=== PATIENT | female | born 1995 | race Caucasian/White ===

== ENCOUNTER 2020-11-06 08:55 | Observation (INO) | payer BC, OTHER ==
[2020-11-06] MEDS ORDERED: Morphine 4 MG/ML VIAL ONE ×2 (09:54→12:02)
[2020-11-06] MEDS ORDERED: Dextrose 5% in Water 1,000 ML IV PRN (11:54)
[2020-11-06] MEDS ORDERED: Dextrose 50% Abboject 50 ML SYRINGE SLOW IVP PRN (11:54)
[2020-11-06] MEDS ORDERED: Ondansetron PF 4 MG/2 ML Vial IVP PRN (11:55)
[2020-11-06] MEDS ORDERED: Sodium Chloride 0.9% 1,000 ML IV SCH (12:00)
[2020-11-06] MEDS ORDERED: traMADol HCl 50 MG TAB ONE (12:08)
[2020-11-06] MEDS: traMADol HCl 50 MG TAB PO SCH ×3 (12:16→23:10)
[2020-11-06] MEDS: traMADol HCl 50 MG TAB PO PRN ×2 (13:45→23:11)
[2020-11-06] MEDS: Cyclobenzaprine 10 MG TAB PO PRN ×2 (13:47→21:55)
[2020-11-06 14:02] VITALS: BMI 36.6
[2020-11-06] MEDS: Morphine 2 MG/ML VIAL SLOW IVP PRN ×2 (16:07→20:36)
[2020-11-06] MEDS: Acetaminophen 500 MG TAB PO SCH ×2 (18:13→23:11)
[2020-11-06] MEDS: Senokot S 8.6-50 MG TAB PO SCH (20:35)
[2020-11-06] MEDS: Famotidine 20 MG TAB PO SCH (20:36)
[2020-11-06 23:54] LABS: SARS-CoV-2 PCR by NAA Not Detected (NotDetected)
[2020-11-07] MEDS: traMADol HCl 50 MG TAB PO SCH ×3 (05:01→18:06)
[2020-11-07] MEDS: traMADol HCl 50 MG TAB PO PRN ×3 (05:01→18:07)
[2020-11-07] MEDS: Cyclobenzaprine 10 MG TAB PO PRN ×2 (05:01→15:55)
[2020-11-07] MEDS: Acetaminophen 500 MG TAB PO SCH ×2 (05:02→11:26)
[2020-11-07 05:08] LABS: #Basophils 0.1 thou/uL (0.0-0.2); #Eosinphils 0.2 thou/uL (0.0-0.7); #Lymphocytes 2.3 thou/uL (1.20-3.40); #Monocytes 0.8 thou/uL (0.11-0.59); #Neutrophils 11.6 thou/uL (1.40-6.50); %Basophils 0.3 % (0.0-1.0); %Eosinophils 1.5 % (0.0-10.0); %Lymphocytes 15.4 % (21.0-51.0); %Monocytes 5.1 % (0.0-10.0); %Neutrophils 77.6 % (42.0-75.0); Hemoglobin 11.9 g/dL (12.0-16.0); Mean Corpuscular Hemoglobin 30.9 pg (27.0-31.0); Mean Corpuscular Volume 96.4 fL (78.0-98.0); Mean Platelet Volume 6.6 fL (7.4-10.4); Platelet Count 305 thou/uL (130-400); RBC Distribution Width 12.7 % (11.5-14.5); Red Blood Cell (RBC) Count 3.85 mill/uL (4.20-5.40)
[2020-11-07 05:24] LABS: Phosphorus 3.2 mg/dL (2.3-4.7)
[2020-11-07 05:33] LABS: ALT (SGPT) 143 U/L (8-55); AST (SGOT) 129 U/L (5-34); Albumin 3.3 g/dL (3.5-5.0); Alkaline Phosphatase 82 U/L (40-110); Anion Gap 9 mmol/L (10-20); BUN (Urea Nitrogen) 7 mg/dL (7.0-18.7); Bilirubin, Total 0.6 mg/dL (0.2-1.2); Calc. Creatinine Clearance 168 mL/min (70-130); Calcium 8.2 mg/dL (7.8-10.44); Carbon Dioxide 25 mmol/L (22-29); Chloride 107 mmol/L (98-107); Globulin 2.7 g/dL (2.4-3.5); Glucose 91 mg/dL (70-105); Magnesium 1.9 mg/dL (1.6-2.6); Potassium 4.2 mmol/L (3.5-5.1); Sodium 138 mmol/L (136-145)
[2020-11-07] MEDS: Senokot S 8.6-50 MG TAB PO SCH (08:09)
[2020-11-07] MEDS: Polyethylene Glycol 3350 17 GM Packet PO SCH ×2 (08:09→08:13)
[2020-11-07] MEDS: Famotidine 20 MG TAB PO SCH (08:09)
[2020-11-07] MEDS ORDERED: Prevnar 13-Val Conj/PF 0.5 ML SYRINGE IM ONE (14:15)
[2020-11-07] MEDS ORDERED: Gabapentin 300 MG CAP PO SCH (15:00)
[2020-11-07 16:11] VITALS: BP 114/69; TEMP 98.2
[2020-11-07] MEDS ORDERED: Ibuprofen 600 MG TAB PO PRN (17:10)
[2020-11-07] MEDS ORDERED: Acetaminophen 500 MG TAB PO SCH (18:00)
== END 2020-11-07 18:26 | disposition home or self-care (01) ==
LOC: ERS 08:55 → ERHOLD 09:33 → SJJU 13:26
PROVIDERS: ADMIT Surgery; ATTEND Surgery
DX: S06.9X9A Unspecified intracranial injury with loss of consciousness of unspecified duration, initial encounter (principal); S36.113A Laceration of liver, unspecified degree, initial encounter; S36.892A Contusion of other intra-abdominal organs, initial encounter; F10.129 Alcohol abuse with intoxication, unspecified; G89.11 Acute pain due to trauma; M54.2 Cervicalgia; R74.01 Elevation of levels of liver transaminase levels; J45.909 Unspecified asthma, uncomplicated; F17.210 Nicotine dependence, cigarettes, uncomplicated; S00.83XA Contusion of other part of head, initial encounter; S70.311A Abrasion, right thigh, initial encounter; Z88.0 Allergy status to penicillin; Z20.822 Contact with and (suspected) exposure to COVID-19; V47.5XXA Car driver injured in collision with fixed or stationary object in traffic accident, initial encounter; Y90.6 Blood alcohol level of 120-199 mg/100 ml
CPT/HCPCS: 36415; 72141; 80053; 83735; 84100; 85025; 96374; 96376; G0378; J2270; U0003; U0005

== ENCOUNTER 2020-12-23 22:24 | Inpatient (IN) | payer BC ==
[2020-12-23 23:03] LABS: #Basophils 0.1 thou/uL (0.0-0.2); #Eosinphils 0.2 thou/uL (0.0-0.7); #Lymphocytes 3.2 thou/uL (1.20-3.40); #Monocytes 0.8 thou/uL (0.11-0.59); #Neutrophils 14.7 thou/uL (1.40-6.50); %Basophils 0.6 % (0.0-1.0); %Lymphocytes 16.8 % (21.0-51.0); %Monocytes 4.2 % (0.0-10.0); %Neutrophils 77.4 % (42.0-75.0); Hemoglobin 16.5 g/dL (12.0-16.0); Mean Corpuscular Hemoglobin 31.2 pg (27.0-31.0); Mean Corpuscular Volume 97.4 fL (78.0-98.0); Mean Platelet Volume 6.7 fL (7.4-10.4); Platelet Count 405 thou/uL (130-400); RBC Distribution Width 13.4 % (11.5-14.5)
[2020-12-23 23:18] LABS: PTT 27.2 sec (22.9-36.1); Prothrombin Time 13.1 sec (12.0-14.7)
[2020-12-23 23:25] LABS: ALT (SGPT) 18 U/L (8-55); AST (SGOT) 18 U/L (5-34); Albumin 3.7 g/dL (3.5-5.0); Alkaline Phosphatase 88 U/L (40-110); Anion Gap 15 mmol/L (10-20); BUN (Urea Nitrogen) 8 mg/dL (7.0-18.7); Bilirubin, Total 0.4 mg/dL (0.2-1.2); Calc. Creatinine Clearance 0 mL/min (70-130); Calcium 8.7 mg/dL (7.8-10.44); Carbon Dioxide 20 mmol/L (22-29); Chloride 105 mmol/L (98-107); Globulin 3.3 g/dL (2.4-3.5); Glucose 158 mg/dL (70-105); Potassium 3.7 mmol/L (3.5-5.1); Sodium 136 mmol/L (136-145)
[2020-12-23] MEDS ORDERED: Crotalidae Polyvlnt Antivenin 4 GM in Sodium Chloride 0.9% 250 ML 250 ML IVPB SCH (23:59)
[2020-12-24] MEDS ORDERED: Ondansetron PF 4 MG/2 ML Vial ONE (00:20)
[2020-12-24] MEDS ORDERED: Morphine 4 MG/ML VIAL ONE (00:27)
[2020-12-24] MEDS ORDERED: methylPREDNISolone Sod Succ/PF 125 MG/2 ML VIAL ONE (00:39)
[2020-12-24] MEDS ORDERED: Famotidine/PF 20 mg/2ml Vial ONE (00:39)
[2020-12-24] MEDS ORDERED: diphenhydrAMINE 50 MG/ML VIAL ONE (00:39)
[2020-12-24] MEDS ORDERED: Acetaminophen 325 MG TAB PO PRN (03:19)
[2020-12-24] MEDS ORDERED: Metoclopramide HCl 10 MG/2 ML VIAL IVP PRN (03:26)
[2020-12-24] MEDS ORDERED: Boostrix 0.5 ML (Tdap) VIAL ONE (03:47)
[2020-12-24] MEDS: Morphine 2 MG/ML VIAL SLOW IVP PRN ×2 (03:47→15:02)
[2020-12-24] MEDS ORDERED: Morphine 2 MG/ML VIAL ONE ×2 (03:47→14:26)
[2020-12-24] MEDS ORDERED: TETANUS, DIPHTHERIA TOX,ADULT (TDVAX) 0.5 ML VIAL IM ONE (04:00)
[2020-12-24 04:47] LABS: PTT 28.2 sec (22.9-36.1); Prothrombin Time 12.9 sec (12.0-14.7)
[2020-12-24 04:50] LABS: Band 18 % (5-11); Hemoglobin 15.1 g/dL (12.0-16.0); Lymphocytes 4 % (21-51); MDiff Complete? YES; Mean Corpuscular HGB CONC 32.1 g/dL (32.0-36.0); Mean Corpuscular Hemoglobin 30.9 pg (27.0-31.0); Mean Corpuscular Volume 96.3 fL (78.0-98.0); Mean Platelet Volume 6.8 fL (7.4-10.4); Neutrophil 78 % (42-75); Platelet Count 341 thou/uL (130-400); Platelet Morphology Comment Appears Adequate; RBC Distribution Width 13.3 % (11.5-14.5); RBC Morphology Normal; Red Blood Cell (RBC) Count 4.87 mill/uL (4.20-5.40); White Blood Cell (WBC) Count 20.1 thou/uL (4.8-10.8)
[2020-12-24] MEDS ORDERED: HYDROcodone/Acetaminophen 5/325 mg Tablet ONE ×3 (06:11→14:26)
[2020-12-24] MEDS: HYDROcodone/Acetaminophen 5/325 mg Tablet PO PRN ×3 (06:14→14:54)
[2020-12-24] MEDS ORDERED: Nicotine 21 MG PATCH TD SCH (09:00)
[2020-12-24] MEDS ORDERED: Acetaminophen 325 MG TAB ONE (11:49)
[2020-12-24 14:27] LABS: SARS-CoV-2 PCR by NAA Not Detected (NotDetected)
[2020-12-24 15:02] VITALS: BP 121/85; TEMP 97.8
== END 2020-12-24 15:28 | disposition home or self-care (01) | DRG 918 ==
LOC: ERS 22:24 → ERHOLD 12-24 00:35
PROVIDERS: ADMIT Internal Medicine; ATTEND Internal Medicine
DX: T63.061A Toxic effect of venom of other North and South American snake, accidental (unintentional), initial encounter (principal); F41.9 Anxiety disorder, unspecified; F17.210 Nicotine dependence, cigarettes, uncomplicated; D72.829 Elevated white blood cell count, unspecified; Z20.822 Contact with and (suspected) exposure to COVID-19; Y92.9 Unspecified place or not applicable; Z88.0 Allergy status to penicillin; Z71.6 Tobacco abuse counseling
CPT/HCPCS: 36415; 82550; 85025; 85384; 85610; 85730; 90714; 90715; J0840; J1200; J2270; J2405; J2930; J7050; S0028; U0003; U0005